=== PATIENT | female | born 1945 | race Caucasian/White ===

== ENCOUNTER 2017-12-01 11:11 | Day surgery (SDC) | payer BC ==
[2017-11-30 15:39] VITALS: BMI 27.8
[2017-12-01] MEDS ORDERED: MIDAZOLAM HCL 2 MG/2 ML SINGLE DOSE VIAL ONE (13:46)
[2017-12-01] MEDS ORDERED: PROPOFOL 20 ML ONE ×3 (13:46→14:03)
[2017-12-01] MEDS ORDERED: BUPIVACAINE HCL/PF 0.25% (2.5MG/ML) 10 ML VIAL IJ ONE (14:27)
[2017-12-01] MEDS ORDERED: PROMETHAZINE HCL 25 MG/1 ML VIAL IVPB PRN (14:43)
[2017-12-01] MEDS ORDERED: oxyCODONE HCL 5 MG TABLET PO PRN ×2 (14:43)
[2017-12-01] MEDS ORDERED: ONDANSETRON 4 MG/2 ML VIAL IVPUSH PRN (14:43)
[2017-12-01] MEDS ORDERED: ONDANSETRON 4 MG/2 ML VIAL ONE (14:47)
[2017-12-01 16:14] VITALS: TEMP 98
[2017-12-01 16:46] VITALS: BP 135/74; PULSE 75
--- NOTE | 2017-12-02 07:41 | OP ---
DATE OF OPERATION: 12/01/2017 SURGEON: Ronny Abraham MD FORENSIC ECONOMIST: BRUCE Frazier PREOPERATIVE DIAGNOSES: 1. Right knee medial and lateral meniscal tear. 2. Right knee cartilage tear. 3. Right knee synovitis. POSTOPERATIVE DIAGNOSES: 1. Right knee medial and lateral meniscal tear. 2. Right knee cartilage tear. 3. Right knee synovitis. PROCEDURE: 1. Right knee arthroscopy with partial meniscectomy medial and lateral meniscus, CPT code 04966. 2. Right knee arthroscopy with chondroplasty and abrasion-plasty, CPT code 2979. 3. Right knee arthroscopy with synovectomy, CPT code 2975. FINDINGS: 1. Medial meniscus body and posterior horn tear. 2. Lateral meniscus posterior horn tear. 3. Synovitis patellofemoral medial and lateral notch area. 4. Anterior grade 2-3 cartilage medial and lateral condyle. 5. ACL and PCL intact. 6. cartilage anterior and lateral joint line. 7. Anterior grade 2-3 cartilage injury patella with grade 2-4 changes patellofemoral trochlea. PROCEDURE: Informed consent was obtained. The patient came to the operating room, where the lower extremity was prepped and draped in a sterile fashion. A tourniquet was placed on the upper thigh, but not inflated. Using standard arthroscopic technique, a lateral incision and portal was made to allow for introduction of the camera into the suprapatellar bursa. This was then taken to the medial joint line, where under direct visualization, a medial incision and portal was made. Excessive synovium noted in the medial, lateral and patellofemoral and notch area was removed by an upbiter, shaver and Bovie cautery. This was found to bring in inflammatory tissue into the joint surface, a source of pain and dysfunction. Probing of the medial and lateral meniscus found tears, as described in the findings. These were removed with the upbiter and shaver and taken back to a stable rim. Grade 2 to 3 degenerative changes were treated with a chondroplasty, removing all flaking surfaces with low-setting Bovie along the periphery to prevent further flaking. Grade 4 changes, as noted, were treated with an abrasion-plasty, creating a bleeding surface at the bone/cartilage interface. Aggressive debridement with shaver/tommy created bleeding surface. Micro fracture also done when indicated in findings. All areas of the knee were once again reexamined. The knee was then drained, and a single suture was placed in all portals. A sterile dressing was placed, and the patient was transferred to the recovery room without complication. RONNY ABRAHAM M.D. [id number]
== END 2017-12-01 16:40 | disposition home or self-care (01) ==
LOC: FASU 11:11
PROVIDERS: ATTEND Orthopaedic Surgery
PROC: 0SBC4ZZ Excision of Right Knee Joint, Percutaneous Endoscopic Approach (ICD-10-PCS; 2017-12-01)
PROC: 0SBC4ZZ Excision of Right Knee Joint, Percutaneous Endoscopic Approach (ICD-10-PCS; 2017-12-01)
PROC: 0SBC4ZZ Excision of Right Knee Joint, Percutaneous Endoscopic Approach (ICD-10-PCS; principal; 2017-12-01 14:09)
DX: S83.241A Other tear of medial meniscus, current injury, right knee, initial encounter (principal); S83.281A Other tear of lateral meniscus, current injury, right knee, initial encounter; S83.8X1A Sprain of other specified parts of right knee, initial encounter; M65.861 Other synovitis and tenosynovitis, right lower leg; X58.XXXA Exposure to other specified factors, initial encounter; Y93.9 Activity, unspecified; Y92.9 Unspecified place or not applicable